=== PATIENT | female | born 1980 ===

== ENCOUNTER 2016-08-27 06:39 | Day surgery (SDC) | payer OTHER ==
[2016-08-21 09:35] VITALS: BMI 35.5
[2016-08-27] MEDS ORDERED: Bupivacaine HCl 0.25% PF (10 ml) Inj ONE (07:25)
[2016-08-27] MEDS ORDERED: Midazolam 2 MG/2 ML VIAL ONE (07:41)
[2016-08-27] MEDS ORDERED: Propofol 10 mg/ml Inj (20 ML) ONE (07:41)
[2016-08-27] MEDS ORDERED: Rocuronium 10 mg/ml (5 ml) ONE (07:42)
[2016-08-27] MEDS: ceFAZolin IV 2 gm in Dextrose 1 GM/50 ML BAG IVPB ONE ×2 (08:03→08:10)
[2016-08-27] MEDS ORDERED: Lactated Ringer's 1,000 ML IV ONE ×3 (08:03→10:30)
[2016-08-27] MEDS: Bupivacaine HCl 0.25% PF (10 ml) Inj ONE ×2 (08:03→08:34)
[2016-08-27] MEDS: Lidocaine 2% w Epi 1:100,000 Inj IJ ONE ×2 (08:04→08:34)
[2016-08-27] MEDS ORDERED: Morphine 4 MG/ML VIAL ONE (09:37)
--- NOTE | 2016-08-27 09:43 | PCM.SURG1 ---
Surgeon's Initial Post Op Note - Surgeon's Notes Surgeon: Juan Unit Technician: Gian [id number] Type of Anesthesia: General Endo, Local Pre-Operative Diagnosis: Cholelithiasis Operative Findings: intrahepatic gallbladder Post-Operative Diagnosis: same Operation Performed: robotic assisted cholecystectomy Specimen/Specimens Removed: gallbladder Estimated Blood Loss: EBL {In ML}: 100 Blood Products Given: N/A Drains Used: No Drains Post-Op Condition: Good Date of Surgery/Procedure: 08/27/16 Time of Surgery/Procedure: 09:43
[2016-08-27] MEDS: HYDROmorphone 0.5 mg/0.5 ml ISec IVP PRN ×2 (10:14→10:30)
[2016-08-27 14:26] VITALS: BP 129/82; PULSE 88; RESP 18; TEMP 97.9; O2SAT 100
--- NOTE | 2016-08-27 17:35 | OP ---
PROCEDURE DATE: 08/27/2016 PREOPERATIVE DIAGNOSES: Chronic cholecystitis and cholelithiasis. POSTOPERATIVE DIAGNOSES: Chronic cholecystitis and cholelithiasis. PROCEDURE DONE: Robotic cholecystectomy. SURGEON: Jay Martinez MD. CORNER BRACE BLOCK MACHINE OPERATOR: REY Son; and Jim Springer, PGY-2 resident. ANESTHESIA: General endotracheal tube anesthesia. ESTIMATED BLOOD LOSS: Around 50 mL. DRAINS: None. PATHOLOGY: Gallbladder was sent for pathology. COMPLICATIONS: None. INTRAOPERATIVE FINDINGS: The patient had changes of chronic cholecystitis and cholelithiasis. INTRAOPERATIVE STEPS: This is a 35-year-old female who was diagnosed with chronic cholecystitis and cholelithiasis and patient was consented for the robotic cholecystectomy, possible open. Brought to the OR, placed supine on the operating table. After induction of the anesthesia, abdomen was prepped and draped in a usual sterile fashion. A supraumbilical transverse incision was made. After incisi ng skin and subcutaneous tissue and fascia, the robotic camera port was placed. Another 3 robotic ca primo ports were placed in upper abdomen. The robot was brought in. The camera arm and arm 1 and arm 2 were docked, and arm 2 was docked and Calot's triangle dissection was done. Cystic duct and cysti c artery was identified and the intraoperative Firefly was used for identification of CBD and the cys tic duct. Now the cystic duct and cystic artery were clipped at 3 places and cut in between 2 clips near the gallbladder, and gallbladder was dissected free from the gallbladder fossa. There was some bleeding from the Calot's triangle that was controlled. After proper hemostasis, all the instruments were taken out. The robot was undocked. All the ports were taken out under vision. Pneumo was def lated. Umbilical port site was closed in 2 layers, the fascia with 0 Vicryl interrupted sutures, the skin with a 4-0 Monocryl, and dry sterile dressing was applied. The patient tolerated the procedure well. Count of instruments and gauze was correct. There was no apparent complication. Jay Martinez MD cc: [id number] TT: 08/27/2016 17:34:29 mn
== END 2016-08-27 13:25 | disposition home or self-care (01) ==
LOC: C.SDS 06:39
PROVIDERS: ATTEND Surgery Surgical Critical Care
DX: K80.10 Calculus of gallbladder with chronic cholecystitis without obstruction (principal); Z68.35 Body mass index [BMI] 35.0-35.9, adult
CPT/HCPCS: 47562; 88304; J0690; J1100; J1170; J2250; J2270; J2405; J2704; J2765; J3010; J7120